=== PATIENT | female | born 1975 | race Caucasian/White ===

== ENCOUNTER 2018-12-19 17:11 | Outpatient (REF) | payer BC, SELFPAY ==
--- NOTE | 2018-12-19 16:15 | PAPFT_PTH ---
PATIENT: Trang Yang LOC: [facility] U#:[id number] AGE/SX: 43/F ROOM: RE12/19/[address]: Marlene Rosas : 1975 BED: DIS: 12/19/2018 SPEC #: [id number] RECD: 12/20/18 12:50 STATUS: SHASHI REAlberto #: [id number] PATRICIA: 12/19/18 16:[address]: Marlene Rosas DEPT: [facility] Cytology RECD BY: Dana Mathew Tissues: 1 - CX/ENDOCX FOR PAP SMEARS Procedures: PAP THIN PREP/UVM Screening HPV DNA PROBE Comments: [id number] (CHLAMYDIA/GC)
[2018-12-21 13:00] LABS: Chlamydia Result Negative; GC Result Negative; Specimen Description SEE COMMENTS
== END 2018-12-19 17:31 ==
LOC: NCHCN 17:11
PROVIDERS: PCP Family Medicine; Visit Provider Family Medicine
DX: Z00.00 Encounter for general adult medical examination without abnormal findings (principal); Z11.3 Encounter for screening for infections with a predominantly sexual mode of transmission; Z12.4 Encounter for screening for malignant neoplasm of cervix; Z11.51 Encounter for screening for human papillomavirus (HPV)
CPT/HCPCS: 87491; 87591; 88142; 87624

== ENCOUNTER 2019-12-03 00:55 | Outpatient (CLI) | payer BC, SELFPAY ==
--- NOTE | 2019-12-03 15:00 | DI.MAMMO_ITS ---
EXAM: MG MAMMO SCREENING CLINICAL HISTORY: screening TECHNIQUE: Mammograms were interpreted according to the usual protocol including computer analysis w ith CAD system, tomosynthesis and C-view imaging. COMPARISON: The current examination is compared with the previous examination of July 2014 FINDINGS: The breasts are heterogeneously dense. No dominant mass or clumped microcalcification is identified in either breast. The current examination is compared with the previous examination of July 2014 an d there is a question of increased prominence of an area of asymmetric density projected in the media l central portion of left breast on CC view and projected in the inferoposterior portion of the breas t on MLO view. Additional mammographic views are requested to exclude a mass including CC and MLO sp ot compression views of the left breast. IMPRESSION: Additional mammographic views of the left breast requested as described above. Breast ultrasound may be indicated as well depending on the results of the additional mammographic views. Category: BI-RADS Cat 0 - Assessment Incomplete: Need additional imaging evaluation Breast Density - Category C - Heterogeneously dense
== END 2019-12-03 01:15 ==
PROVIDERS: PCP Family Medicine; Visit Provider Obstetrics & Gynecology Gynecology
DX: Z12.31 Encounter for screening mammogram for malignant neoplasm of breast (principal); R92.2 Inconclusive mammogram
CPT/HCPCS: 77063; 77067

== ENCOUNTER 2019-12-05 01:20 | Outpatient (CLI) | payer BC, SELFPAY ==
--- NOTE | 2019-12-05 | DI.US_ITS ---
EXAM: MG MAMMO SCREEN CALL BACK UNI CLINICAL HISTORY: F/U MAMMO, INCREASED ASYMMETRIC DENSITY MEDIAL PORTION LT BREAST TECHNIQUE: Mammograms were interpreted according to the usual protocol including computer analysis w [employer] CAD system, tomosynthesis and C-view imaging. COMPARISON: FINDINGS: Additional mammographic views of the left breast and left breast ultrasound are interpreted in conjun ction. These examinations obtained to evaluate questionable areas of asymmetric density seen recent mammogram. Additional mammographic views fail to show a discrete mass. Breast ultrasound shows no e vidence of a mass or cyst. IMPRESSION: No specific evidence of malignancy at this time. Follow-up unilateral left breast mammogram recommen ded in 6 months. BI-RADS Cat 3 - 6 month - Probably Benign Finding: Recommend follow-up mammography in 6 months: Breast Density - Category C - Heterogeneously dense:
--- NOTE | 2019-12-05 09:21 | DI.MAMMO_ITS ---
EXAM: MG MAMMO SCREEN CALL BACK UNI CLINICAL HISTORY: F/U MAMMO, INCREASED ASYMMETRIC DENSITY MEDIAL PORTION LT BREAST TECHNIQUE: Mammograms were interpreted according to the usual protocol including computer analysis w [employer] CAD system, tomosynthesis and C-view imaging. COMPARISON: FINDINGS: Additional mammographic views of the left breast and left breast ultrasound are interpreted in conjun ction. These examinations obtained to evaluate questionable areas of asymmetric density seen recent mammogram. Additional mammographic views fail to show a discrete mass. Breast ultrasound shows no e vidence of a mass or cyst. IMPRESSION: No specific evidence of malignancy at this time. Follow-up unilateral left breast mammogram recommen ded in 6 months. BI-RADS Cat 3 - 6 month - Probably Benign Finding: Recommend follow-up mammography in 6 months: Breast Density - Category C - Heterogeneously dense:
== END 2019-12-05 01:40 ==
PROVIDERS: PCP Family Medicine; Visit Provider Obstetrics & Gynecology Gynecology
DX: Z12.39 Encounter for other screening for malignant neoplasm of breast (principal); R92.2 Inconclusive mammogram; R92.8 Other abnormal and inconclusive findings on diagnostic imaging of breast
CPT/HCPCS: 76642; 77063; 77067

== ENCOUNTER 2020-01-27 08:22 | Outpatient (REF) | payer BC, SELFPAY ==
[2020-01-27 21:25] LABS: HCT 45.3 % (36.0-46.0); HGB 14.5 g/dL (11.2-15.7); MCH 30.8 pg (27.0-33.0); MCV 96.2 fL (80-95); MPV 11.7 fL (8.0-11.0); Platelet Count 231 10^3/uL (130-400); RBC 4.71 10^6/uL (3.93-5.22); RDW 12.8 % (11.7-14.6); WBC 4.76 10^3/uL (4.4-10.8)
[2020-01-27 23:18] LABS: ALT 26 U/L (14-59); AST 17 U/L (15-37); Albumin 4.2 g/dL (3.4-5.0); Alkaline Phosphatase 43 U/L (46-116); Anion Gap 6.7 mmol/L (3-11); BUN 14 mg/dL (7-18); Bilirubin, Total 0.9 mg/dL (0.2-1.0); CO2 29.3 mmol/L (21.0-32.0); CREATININE 0.78 mg/dL (0.55-1.02); Calcium 9.2 mg/dL (8.5-10.1); Calculated LDL 119 mg/dL (<100); Chloride 106 mmol/L (98-107); Cholesterol 186 mg/dL (<200); Glucose 89 mg/dL (74-106); HDL Cholesterol 55 mg/dL (40-60); Sodium 142 mmol/L (136-145); Triglyceride 60 mg/dL (<150)
[2020-01-28 00:07] LABS: Total Protein 7.2 g/dL (6.4-8.2)
== END 2020-01-27 08:42 ==
LOC: NCHCN 08:22
PROVIDERS: PCP Family Medicine; Visit Provider Family Medicine
DX: Z00.00 Encounter for general adult medical examination without abnormal findings (principal); Z13.0 Encounter for screening for diseases of the blood and blood-forming organs and certain disorders involving the immune mechanism; Z13.220 Encounter for screening for lipoid disorders; Z13.228 Encounter for screening for other metabolic disorders
CPT/HCPCS: 80053; 80061; 85027

== ENCOUNTER 2020-06-22 01:53 | Outpatient (CLI) | payer BC, SELFPAY ==
--- NOTE | 2020-06-22 08:00 | DI.MAMMO_ITS ---
EXAM: MG MAMMO DIAGNOSTIC UNI-left CLINICAL HISTORY: 6 MO F/U, F/U ABNL MAMMO, H/OT LT BREAST DENSITY. TECHNIQUE: Unilateral left CC and MLO mammographic images were obtained with 3D [employer] ue and utilizing computer aided detection (CAD). COMPARISON: Prior mammograms dating back to 2014, the most recent being November 2019. Ultrasound Nov us2019 was also reviewed, apparently negative FINDINGS: Again noted is dense fibroglandular tissue. No new obvious masses nor malignant-appearing microcalcification groups. Area previously described medially in left breast appears unchanged. IMPRESSION: Dense fibroglandular tissue. No obvious radiographic evidence of malignancy in the left breast. Appropriate follow-up is to keep this patient yearly mammogram schedule, this implying that her next screening mammogram would be in November 2020, with earlier imaging if a self detected breast changes n oted.. Given the density of this patient's fibroglandular tissue I feel would be good idea to form bilateral breast screening ultrasound examination at the time of her next yearly mammogram. BI-RADS Category 2 - Benign Findings Breast Density - Category D - Extremely dense Breast density Category C or D implies that the patient has dense breast tissue. Dense breast tissue can make it harder to find cancer on a mammogram. Dense breast tissue is also associated with an incr eased risk of breast cancer. This information about the result of the mammogram report was provided to the patient to raise their awareness. Use this report when you speak with the patient about their risks for breast cancer, which includes their family history. At that time, you may recommend additional screening tests (Ultrasoun d or MRI) as these tests may add significant information. A negative radiographic report should not delay biopsy if a dominant or clinically suspicious mass is present. Up to ten percent of cancers are not identified on mammography. A negative report may reinforce clinical impression. Adenosis and dense breasts may obscure an underlying neoplasm. False positive reports average 6 to 10%. Patient will receive a letter notifying them of these results.
== END 2020-06-22 01:54 ==
LOC: DI 01:54
PROVIDERS: PCP Family Medicine; Visit Provider Obstetrics & Gynecology Gynecology
DX: Z12.31 Encounter for screening mammogram for malignant neoplasm of breast (principal); R92.8 Other abnormal and inconclusive findings on diagnostic imaging of breast; N64.59 Other signs and symptoms in breast
CPT/HCPCS: 77061; 77065; G0279

== ENCOUNTER 2020-11-19 16:00 | Outpatient (REF) | payer BC, SELFPAY | END 2020-11-19 16:01 | disposition home or self-care (01) | LOC: LBN 16:00 | PROVIDERS: PCP Family Medicine; Visit Provider Obstetrics & Gynecology | DX: N89.8 Other specified noninflammatory disorders of vagina (principal) | CPT/HCPCS: 87102; 87206; 87480; 87510; 87660 ==

== ENCOUNTER 2020-11-26 04:12 | Outpatient (CLI) | payer BC, SELFPAY ==
[2020-11-26 11:33] LABS: Hemoglobin A1C 5.3 % (<5.7)
== END 2020-11-26 04:13 | disposition home or self-care (01) ==
LOC: LBO 04:12
PROVIDERS: PCP Family Medicine; Visit Provider Obstetrics & Gynecology
DX: Z83.3 Family history of diabetes mellitus (principal); Z13.1 Encounter for screening for diabetes mellitus
CPT/HCPCS: 36415; 83036

== ENCOUNTER 2020-12-03 01:56 | Outpatient (CLI) | payer BC, SELFPAY ==
--- NOTE | 2020-12-03 06:30 | DI.MAMMO_ITS ---
Exam(s) MAMMO SCREENING EXAM: MAMMO SCREENING CLINICAL HISTORY: screening,Z12.39. TECHNIQUE: Bilateral full field digital CC and MLO mammographic images were obtained with 3D tomosyn thesis and utilizing computer aided detection (CAD). COMPARISON: Prior mammograms dating back to 2014, the most recent being November 2019. Breast ultrasound November 2019 was also reviewed. FINDINGS: Fibroglandular tissue pattern is again noted be dense, this decreasing the sensitivity of the mammogr am for finding hidden underlying lesions. There are no CAD designations. In the anterior aspect of the left breast in the lateral para areolar region there is a small nodular density which appears unchanged from 2020. This measures 2.5 x 2.5 millimeters and is located appro ximately 2 cm in from the nipple. No malignant-appearing microcalcification groups in this region or elsewhere in either breast. Posteriorly in the left breast up again suggest wall there is a nodular density measuring 10 x 7 mill imeter which has the appearance of probable lymph node although is more evident than on prior studies . No new significant radiographic findings evident in the right breast. There is no significant architectural distortion nor skin thickening-retraction. IMPRESSION: Dense bilateral fibroglandular tissue. No obvious radiographic evidence of malignancy in the right b reast. In the left breast there are 2 findings as described above, 1 anteriorly and the other posteriorly up against chest wall. Breast ultrasound recommended. BI-RADS Category 0 - Assessment Incomplete: Need additional imaging evaluation Breast Density - Category C - Heterogeneously dense Breast density Category C or D implies that the patient has dense breast tissue. Dense breast tissue can make it harder to find cancer on a mammogram. Dense breast tissue is also associated with an incr eased risk of breast cancer. This information about the result of the mammogram report was provided to the patient to raise their awareness. Use this report when you speak with the patient about their risks for breast cancer, which includes their family history. At that time, you may recommend additional screening tests (Ultrasoun d or MRI) as these tests may add significant information. A negative radiographic report should not delay biopsy if a dominant or clinically suspicious mass is present. Up to ten percent of cancers are not identified on mammography. A negative report may reinforce clinical impression. Adenosis and dense breasts may obscure an underlying neoplasm. False positive reports average 6 to 10%. Patient will receive a letter notifying them of these results.
== END 2020-12-03 02:16 ==
PROVIDERS: PCP Family Medicine; Visit Provider Obstetrics & Gynecology Gynecology
DX: Z12.31 Encounter for screening mammogram for malignant neoplasm of breast (principal)
CPT/HCPCS: 77063; 77067

== ENCOUNTER 2020-12-18 03:49 | Outpatient (CLI) | payer BC, SELFPAY ==
--- NOTE | 2020-12-18 | DI.MAMMO_ITS ---
Exam(s) US BREAST LT COMPLETE MG MAMMO SCREEN CALL BACK UNI EXAM: MG MAMMO SCREEN CALL BACK UNI and U/S breast LT limited CLINICAL HISTORY: F/U MAMMO,LT NODULAR DENSITY, ? LYMPH NODE. TECHNIQUE: Craniocaudal and mediolateral oblique Full Field Digital Mammography views of the left br east with Computer Aided Diagnosis followed by Tomosynthesis and left breast ultrasound. COMPARISON: Priors available for comparison. FINDINGS: Mammography/Tomosynthesis: Masses/Architectural Distortion: The well-circumscribed nodule in the retroareolar region of the left breast is unchanged compared to the prior examination. The area of concern in the left axillary maine l does not persist on the additional views. Microcalcifictions: No suspicious pleomorphic-type are seen. Skin Thickening/Nipple Retraction: None. Left breast US: Echotexture: Normal appearance of the glandular tissue. Shadowing: No suspicious foci. Cyst: There is a 0.6 x 0.4 x 0.7 cm simple cyst at the 2 o'clock position of the left breast 1 cm fro m the nipple. There is a 0.4 x 0.3 x 0.4 cm round well-circumscribed hypoechoic nodule at the 2 o'cl ock position of the left breast 1 cm from the nipple. There does appear to be internal debris and th is may represent a hemorrhagic cyst. Solid lesions: None seen. Ductal dilation: None. IMPRESSION: 1. No evidence of malignancy is noted. Two cystic lesions at the 2 o'clock position, 1 cm from the ni pple. One of these may represent a hemorrhagic cyst. The 2nd corresponds to a simple cyst sonograph icakeyony. 2. A six-month follow-up left mammogram and ultrasound are requested for re-evaluation. 3. The findings were discussed with the patient on the date of the examination. BI-RADS Category 3 - 6 month - Probably Benign Finding: Recommend follow-up imaging in 6 months Breast Density - Category C - Heterogeneously dense Breast density Category C or D implies that the patient has dense breast tissue. Dense breast tissue can make it harder to find cancer on a mammogram. Dense breast tissue is also associated with an incr eased risk of breast cancer. This information about the result of the mammogram report was provided to the patient to raise their awareness. Use this report when you speak with the patient about their risks for breast cancer, which includes their family history. At that time, you may recommend additional screening tests (Ultrasoun d or MRI) as these tests may add significant information. A negative radiographic report should not delay biopsy if a dominant or clinically suspicious mass is present. Up to ten percent of cancers are not identified on mammography. A negative report may reinforce clinical impression. Adenosis and dense breasts may obscure an underlying neoplasm. False positive reports average 6 to 10%. Patient will receive a letter notifying them of these results.
== END 2020-12-18 04:09 ==
PROVIDERS: PCP Family Medicine; Visit Provider Obstetrics & Gynecology Gynecology
DX: Z12.31 Encounter for screening mammogram for malignant neoplasm of breast (principal); N60.02 Solitary cyst of left breast
CPT/HCPCS: 76642; 77063; 77067

== ENCOUNTER 2021-06-21 01:39 | Outpatient (CLI) | payer BC, SELFPAY ==
--- NOTE | 2021-06-21 07:45 | DI.US_ITS ---
Exam(s) US BREAST LT COMPLETE MG MAMMO DIAGNOSTIC UNI EXAM: MG MAMMO DIAGNOSTIC UNI -LEFT AND COMPLETE LEFT BREAST ULTRASOUND CLINICAL HISTORY: 6mo f/u,N60.02,R92.8. TECHNIQUE: Unilateral spot mammographic images were obtained with 3D tomosynthesis technique and uti lizing computer aided detection (CAD). Also performed complete ultrasound examination of the left breast including all 4 quadrants, the retr oareolar region, and left axilla. COMPARISON: Prior mammograms were reviewed, the most recent being November 2020. Prior ultrasound November 2020 was also reviewed FINDINGS: DIAGNOSTIC LEFT BREAST MAMMOGRAM: Fibroglandular tissue of the left breast is again noted dense, this somewhat decreasing sensitivity m ammogram for finding hidden underlying lesions. Today's mammogram images reveal a well-defined oval nodule at 1 o'clock position measuring 7 x 5 mill imeters. No additional nodules. No malignant-appearing microcalcification groups. COMPLETE LEFT BREAST ULTRASOUND: At the 1 o'clock position there is again noted of the 2 previously described adjacent findings. The larger of the 2 corresponds to the finding on today's mammogram and is a 7 by 5 millimeter microcyst, unchanged. Immediately adjacent to it is a smaller unchanged findings which is round and measures 4 x 4 millimeter. Careful multiplanar imaging through this nodule reveals it to be a hemorrhagic micr ocyst. This is not seen on the mammogram. Also noted is another benign finding at the-4 o'clock position which is a 3 millimeter microcyst. There are no new solid lesions in the left breast. No significant left axillary adenopathy. IMPRESSION: 1. Nodule on the mammogram as described above which corresponds to the 7 x 5 millimeter microcyst see n on today's ultrasound, this ultrasound finding being unchanged from the November 2020 ultrasound find ing. 2. Adjacent to the above is an unchanged 4 millimeter hemorrhagic microcyst. 3. Benign 3 millimeter microcyst at the 4 o'clock position. Appropriate follow-up (as discussed by myself with the patient today) is to keep this patient on her yearly mammogram schedule this implying that her next bilateral mammogram would be in November 2021. A t that time I recommend that she undergo bilateral breast ultrasound, given the density of her breast tissue.. The patient was informed of the findings and follow-up recommendations prior to leaving the [facility] t today. BI-RADS Category 3 - 6 month - Probably Benign Finding: Recommend follow-up mammography in 6 months Breast Density - Category C - Heterogeneously dense Breast density Category C or D implies that the patient has dense breast tissue. Dense breast tissue can make it harder to find cancer on a mammogram. Dense breast tissue is also associated with an incr eased risk of breast cancer. This information about the result of the mammogram report was provided to the patient to raise their awareness. Use this report when you speak with the patient about their risks for breast cancer, which includes their family history. At that time, you may recommend additional screening tests (Ultrasoun d or MRI) as these tests may add significant information. A negative radiographic report should not delay biopsy if a dominant or clinically suspicious mass is present. Up to ten percent of cancers are not identified on mammography. A negative report may reinforce clinical impression. Adenosis and dense breasts may obscure an underlying neoplasm. False positive reports average 6 to 10%. Patient will receive a letter notifying them of these results.
== END 2021-06-21 01:59 ==
PROVIDERS: PCP Family Medicine; Visit Provider Obstetrics & Gynecology Gynecology
DX: N60.02 Solitary cyst of left breast (principal); R92.8 Other abnormal and inconclusive findings on diagnostic imaging of breast
CPT/HCPCS: 76642; 77061; 77065; G0279

== ENCOUNTER 2021-11-17 17:01 | Outpatient (REF) | payer BC, SELFPAY | END 2021-11-17 17:02 | disposition home or self-care (01) | LOC: LBN 17:01 | PROVIDERS: PCP Family Medicine; Visit Provider Nurse Practitioner Women's Health | DX: N89.8 Other specified noninflammatory disorders of vagina (principal) | CPT/HCPCS: 87480; 87510; 87660 ==

== ENCOUNTER → 2021-12-07 02:37 | Outpatient (CLI) | payer BC, SELFPAY ==
--- NOTE | 2021-12-07 10:54 | DI.MAMMO_ITS ---
Exam(s) MAMMO SCREENING EXAM: MAMMO SCREENING CLINICAL HISTORY: screening,z12.39 TECHNIQUE: Mammograms were interpreted according to the usual protocol including computer analysis w [employer] CAD system, tomosynthesis and C-view imaging. COMPARISON: 2014 through 2021 FINDINGS: The breasts are composed of heterogeneously dense fibroglandular densities, Breast Density category C . No suspicious masses or suspicious microcalcifications are seen. No skin thickening or abnormal axillary lymph nodes are seen. There has been no significant change from prior exams. IMPRESSION: BI-RADS Category 1, Negative mammogram. Yearly screening mammography is recommended. Breast Density Category C, heterogeneously Dense. The mammogram demonstrates the patient's breast tissue is dense. Dense breast tissue is very common a nd is not abnormal but dense breast tissue can make it harder to find cancer on a mammogram. Also, de nse breast tissue may increase breast cancer risk. This information about the result of the mammogram report was provided to the patient to raise their awareness. Use this report when you speak with the patient about their risks for breast cancer, which includes their family history. At that time, you may recommend additional screening tests (Ultrasound or MRI) as they might be useful based on their r isk. A negative radiographic report should not delay biopsy if a dominant or clinically suspicious mass is present. Up to ten percent of cancers are not identified on mammography. A negative report may reinforce clinical impression. Adenosis and dense breasts may obscure an underlying neoplasm. False positive reports average 6 to 10%.
== END ==
PROVIDERS: PCP Family Medicine; Visit Provider Obstetrics & Gynecology Gynecology
DX: Z12.31 Encounter for screening mammogram for malignant neoplasm of breast (principal); R92.8 Other abnormal and inconclusive findings on diagnostic imaging of breast
CPT/HCPCS: 77063; 77067

== ENCOUNTER 2022-03-26 11:44 | Outpatient (REF) | payer BC, SELFPAY | END 2022-03-26 11:45 | disposition home or self-care (01) | LOC: LBN 11:44 | PROVIDERS: PCP Family Medicine; Visit Provider Nurse Practitioner Family | DX: R30.0 Dysuria (principal) | CPT/HCPCS: 87086 ==

== ENCOUNTER 2022-11-28 15:57 | Outpatient (REF) | payer BC, SELFPAY ==
[2022-11-28 21:44] LABS: ALT 24 U/L (14-59); AST 17 U/L (15-37); Albumin 4.2 g/dL (3.4-5.0); Alkaline Phosphatase 53 U/L (46-116); Anion Gap 8.9 mmol/L (3-11); BUN 14 mg/dL (7-18); Bilirubin, Total 0.6 mg/dL (0.2-1.0); CO2 29.1 mmol/L (21.0-32.0); CREATININE 0.8 mg/dL (0.55-1.02); Calcium 9.4 mg/dL (8.5-10.1); Calculated LDL 118 mg/dL (<100); Chloride 102 mmol/L (98-107); Cholesterol 208 mg/dL (<200); Estimated GFR 90.27 (mL/min/1.73m2); Glucose 94 mg/dL (74-106); HDL Cholesterol 60 mg/dL (40-60); Potassium 3.8 mmol/L (3.5-5.1); Sodium 140 mmol/L (136-145); Total Protein 7.5 g/dL (6.4-8.2); Triglyceride 151 mg/dL (<150)
[2022-11-28 22:34] LABS: Vitamin D 25 Total 38.2 ng/mL (30-100)
== END 2022-11-28 15:58 | disposition home or self-care (01) ==
LOC: NCHCN 15:57
PROVIDERS: PCP Family Medicine; Visit Provider Family Medicine
DX: Z00.00 Encounter for general adult medical examination without abnormal findings (principal)
CPT/HCPCS: 80053; 80061; 82306

== ENCOUNTER → 2022-12-09 00:23 | Outpatient (CLI) | payer BC, SELFPAY ==
--- NOTE | 2022-12-09 08:25 | DI.MAMMO_ITS ---
Exam(s) MAMMO SCREENING EXAM: MAMMO SCREENING CLINICAL HISTORY: screening,z12.39 TECHNIQUE: Mammograms were interpreted according to the usual protocol including computer analysis w light CAD system, tomosynthesis and C-view imaging. COMPARISON: 2014 through 2021 FINDINGS: The breasts are composed of heterogeneously dense fibroglandular densities, Breast Density category C . No suspicious masses or suspicious microcalcifications are seen. No skin thickening or abnormal axillary lymph nodes are seen. There has been no significant change from prior exams. IMPRESSION: BI-RADS Category 1, Negative mammogram. Yearly screening mammography is recommended. Breast Density Category C, heterogeneously Dense. The mammogram demonstrates the patient's breast tissue is dense. Dense breast tissue is very common a nd is not abnormal but dense breast tissue can make it harder to find cancer on a mammogram. Also, de nse breast tissue may increase breast cancer risk. This information about the result of the mammogram report was provided to the patient to raise their awareness. Use this report when you speak with the patient about their risks for breast cancer, which includes their family history. At that time, you may recommend additional screening tests (Ultrasound or MRI) as they might be useful based on their r isk. A negative radiographic report should not delay biopsy if a dominant or clinically suspicious mass is present. Up to ten percent of cancers are not identified on mammography. A negative report may reinforce clinical impression. Adenosis and dense breasts may obscure an underlying neoplasm. False positive reports average 6 to 10%.
== END ==
PROVIDERS: PCP Family Medicine; Visit Provider Obstetrics & Gynecology Gynecology
DX: Z12.31 Encounter for screening mammogram for malignant neoplasm of breast (principal)
CPT/HCPCS: 77063; 77067

== ENCOUNTER → 2023-06-27 02:07 | Outpatient (CLI) | payer BC, SELFPAY ==
--- NOTE | 2023-06-27 07:15 | DI.RAD_ITS ---
Exam(s) XR FOOT RT COMPLETE EXAM: XR FOOT RT COMPLETE CLINICAL HISTORY: Painful bunion rt foot,M79.671,M21.611. TECHNIQUE: 2D digital imaging was performed. Three views. COMPARISON: CR XR FOOT LT COMPLETE from 06/27/2023 FINDINGS: BONES: No acute fracture is present. No bony destructive lesion is seen. JOINTS: No dislocation present. First metatarsal varus and hallux valgus. SOFT TISSUE: Normal. IMPRESSION: Hallux valgus. DATA REPOSITORY: RADIATION DOSE DELIVERED:
--- NOTE | 2023-06-27 07:15 | DI.RAD_ITS ---
Exam(s) XR FOOT LT COMPLETE EXAM: XR FOOT LT COMPLETE CLINICAL HISTORY: Left foot painful bunion,M79.672,M21.612. TECHNIQUE: 2D digital imaging was performed. Three views. COMPARISON: No exams were available for comparison FINDINGS: BONES: No acute fracture is present. No bony destructive lesion is seen. JOINTS: No dislocation present. First metatarsal varus and hallux valgus. 1st MTP joint is maintain ed. Plantar arch is maintained. SOFT TISSUE: Normal. IMPRESSION: Hallux valgus. DATA REPOSITORY: RADIATION DOSE DELIVERED:
== END ==
PROVIDERS: PCP Family Medicine; Visit Provider Podiatrist
DX: M79.672 Pain in left foot (principal); M21.612 Bunion of left foot; M79.671 Pain in right foot; M21.611 Bunion of right foot
CPT/HCPCS: 73630

== ENCOUNTER 2023-10-23 14:46 | Outpatient (REF) | payer BC, SELFPAY ==
[2023-10-23 15:38] LABS: FREE T4 1.06 ng/dL (0.76-1.46); TSH 1.48 uIU/Ml (0.36-3.74)
== END 2023-10-23 14:47 | disposition home or self-care (01) ==
LOC: NCHCN 14:46
PROVIDERS: PCP Family Medicine; Visit Provider Family Medicine
DX: E04.9 Nontoxic goiter, unspecified (principal)
CPT/HCPCS: 84439; 84443

== ENCOUNTER 2023-10-27 07:13 | Day surgery (SDC) | payer BC, SELFPAY ==
--- NOTE | 2023-10-26 22:03 | W.COLOREPORT ---
Date of service: 10/27/23 Time of Service: 15:00 Colonoscopy Report Date of procedure: 10/27/23 Pre-op diagnosis general: CRC screening Post-op diagnosis procedure note: other (Small internal and external hemorrhoids) Surgeon: Salud Guaman Anesthesia Type: General:No Airway Estimated blood loss (mL): 0 Pathology: none sent Complications: None Disposition: same day Prep: Miralax/Dulcolax Retraction Time: 8mins Procedure Description: After informed consent was obtained the patient was taken to the procedure room and placed in a left decubitous position. Monitors were applied and a time out was done. The patients name, date of , procedure, allergies to medications and metal in their body was reviewed. The patient was then sedated. Once sedated and comfortable a rectal exam was done. External exam-small external hemorrhoids without thrombosis or inflammation. Internal exam revealed a normal sphincter tone and no palpable masses. The scope was then introduced and retrofelexed. GradeII internal hemorrhoids x 2 columns were identified. The scope was then advanced to the cecum without difficulty. The TI and appendiceal orifice were identified. The scope was then slowly retracted over 8 minutes back into the rectum. There are no polyp/AVM/diverticula visualized today. The Mucosa is pink and healthy with a normal vascular pattern.. The scope was removed and the patient was woken up and taken back to Same day surgery in stable condition. The patient tolerated the procedure well and there were no immediate complications. Follow up: The patient should follow up in 10 years unless they develop changes in bowel habits or other new gastrointestinal complaints. Butler Bowel Prep Butler Bowel Prep Right Colon: 3 Left Colon: 3 Transverse Colon: 3 Total Score: 9
--- NOTE | 2023-10-26 22:04 | PDOC.DSDIS_ITS ---
Date of service: 10/27/23 Time of Service: 10:26 Discharge Plan Disposition Patient Disposition: Home Condition: Good Discharge Details Reason For Visit: colon scope Attending Provider: Salud Guaman Primary Care Provider: Marlene Rosas Home Meds and New Rx's Prescriptions: Continued multivitamin Tablet 1 tab PO DAILY cholecalciferol (vitamin D3) 125 mcg (5,000 unit) capsule 125 mcg PO DAILY Mirena 1 EACH intrauterine device 1 ea Intrauterine DAILY Qty: 1 Discontinued bisacodyl [Dulcolax (bisacodyl)] 5 mg tablet,delayed release (DR/EC) 5 mg PO ONCE Qty: 4 0RF Rx Instructions: Take per colonoscopy instructions provided by ordering providers office polyethylene glycol 3350 17 gram/dose powder 17 g PO ONCE Qty: 238 0RF Rx Instructions: Take per colonoscopy instructions provided by ordering providers office Discharge Instructions Additional Instructions: DSU Colonoscopy Post- Op Instructions Instructions for Everyone who is given Anesthesia: For your safety, please do the following for the next twenty-four (24) hours: *Do Not operate a motor vehicle (car, truck, motorcycle, etc.) *Do Not drink alcoholic beverages or use any recreational drugs for the first 24 hours or while taking pain medications. The medications in your body may have a reaction that can be dangerous. *Do Not make any important decisions or sign any important papers. Findings: small external and internal hemorrhoids Follow up: Repeat in 10 yrs time 1. No lifting over 20 pounds or strenuous activity for the first 24 hours after your procedure. After 24 hours there are no restrictions on your activity but you may feel fatigued for a few days. 2. After you arrive home you may have a light meal and return to your normal diet as you can tolerate it without feeling sick to your stomach. 3. You may have a bloated, gaseous feeling in your belly (abdomen) after a colonoscopy. Passing gas and belching will help. Walking or lying down on your left side with your knees flexed may relieve the discomfort. Call the office at [phone] (Office) or [phone] (Hospital) right away if you notice any of the following: a.Vomiting of blood or ?coffee ground stools?. b.Rectal bleeding 1Tbsp, blood clots or continuous bleeding. c.Severe belly (abdominal) pain. d.A hard distended belly (abdomen) and an inability to pass gas. 4. Please don?t expect to have a normal BM (bowel movement) for 2-3 days after your procedure. 5. If there are questions regarding the findings of your procedure, please contact your doctor 6. If you are unable to contact your doctor with a problem, contact the hospital at [phone]. 7. Continue all your regular medications unless directed otherwise. I understand the above instructions and have no questions. Signature of Patient or Adult Escort Name of Responsible Adult Escort Signature of Nurse Date/Time Stand Alone Forms: Anesthesia Discharge Inst., Kyle Elizondo (DSU) Activity:: see above Diet:: see above Discharge Orders Discharge Orders: Discharge Order (Routine); Ordered 10/27/23 Ordered By: Salud Guaman DS: Diagnosis Discharge Diagnosis (1) Colon cancer screening: Status: Acute Asessment and Plan: The patient is seen and examined after their colonoscopy.? The patient has been able to pass gas.? They are not having abdominal pain.? They have been able to tolerate liquids and a snack.? They do not have any nausea or vomiting.? They are not having any chest pain or shortness of breath.??? They are not having any rectal bleeding. Their vital signs have been stable-see nursing notes. We discussed findings during their colonoscopy, and any biopsies that were done/polyps that were removed. The patient will be sent a letter with any biopsy results, and when to repeat the colonoscopy.-see discharge instructions. Patient was given explicit instructions to follow-up regarding colonoscopy-refer to discharge instructions.? We reviewed resumption of medications. Patient verbalized understanding and discharged in stable and satisfactory condition- See nursing notes. (2) Cerebral palsy: Status: Acute (3) Internal hemorrhoid: Status: Acute (4) External hemorrhoid: Status: Acute
[2023-10-27 07:27] VITALS: BP 128/70; PULSE 85; RESP 20; TEMP 36.2; O2SAT 100
[2023-10-27] MEDS: Lactated Ringers 1,000 ML 80 ML IV (07:48)
[2023-10-27 08:14] VITALS: BMI 25.3
--- NOTE | 2023-10-27 08:14 | W.ANESPRE ---
General Info Date of Service Date Performed: 10/27/23 Height: 5 ft 2.5 in Weight: 63.9 kg Body Mass Index (BMI): 25.3 Surgical Procedure: Operation Date: 10/27/23 08:20 Proposed Procedure Side Surgeon jack Guaman, DO Meds Allergies and Home Medications Allergies Allergy/AdvReac Type Severity Reaction Status Date / Time No Known Allergies Allergy Verified 10/27/23 07:38 Home Medication Medication Instructions Recorded levonorgestrel 21 mcg/24 hr (up to 1 ea intrauterine DAILY ##1 09/23/14 8 years) 52 mg intrauterine device (Mirena) cholecalciferol (vitamin D3) 125 125 mcg PO DAILY 06/27/23 mcg (5,000 unit) capsule multivitamin 1 tab PO DAILY 06/27/23 Current Visit Medications: Current Medications Generic Name Dose Route Start Last Admin Trade Name Freq PRN Reason Stop Dose Admin Hyoscyamine Sulfate 0.125 mg 10/27/23 12:43 Hyoscyamine 0.125 Mg Sl/Oral/Chew SL 11/26/23 12:42 DIRECTED PRN Ringer's Solution 1,000 mls @ 80 mls/hr 10/27/23 06:00 10/27/23 07:48 IV 10/27/23 23:59 80 mls/hr INFUSION [place] Administration IV Miscellaneous Supplies 1 each 10/27/23 06:00 Iv Access IV 10/27/23 23:59 DIRECTED [place] Ondansetron HCl 4 mg 10/27/23 00:43 Ondansetron 4 Mg/2 Ml Vial IVP 11/26/23 00:42 Q4H PRN PRN Nausea / Vomiting Sodium Chloride 0 ml 10/27/23 06:00 Normal Saline Flush 10 Ml Syr IV 10/27/23 23:59 PRN PRN Sodium Chloride 0 ml 10/27/23 06:00 Normal Saline 10 Ml Vial IJ 10/27/23 23:59 DIRECTED PRN Sterile Water 0 ml 10/27/23 06:00 Water,Injection,Sterile 10 Ml Vial IJ 10/27/23 23:59 DIRECTED PRN PFSH Active Problems Active Problems: Problem Status Onset Code Colon cancer screening Z12.11 Acquired leg length discrepancy M21.70 Achilles tendon contracture, 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, M67.02 Hallux rigidus of right foot M20.21 Hallux rigidus, left foot M20.22 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 08/2014 BV and yeast. 07/2015 Strabismus Herpes zoster ophthalmicus 12/2011 - on Valcyclovir suppression Tobacco Smoking/Tobacco Use Status: Never Alcohol Alcohol Intake: never Substance Use Substance use: Never Substance use type: does not use Prental History History 2 Para 2 Hx # Term Pregnancies 2 Multiple births Hx # Pregnancies Ectopic pregnancies AB induced Hx Number of Living Children 2 AB spontaneous Vital Signs and Lab Results Vital Signs Most Recent Vital Signs in EMR: Most Recent Vital Signs Temp Pulse Resp BP Pulse Ox 36.2 C L 85 20 128/70 100 10/27/23 07:27 10/27/23 07:27 10/27/23 07:27 10/27/23 07:27 10/27/23 07:27 Lab Results Blood Type / Crossmatch: No Data to Display Complete Blood Count: No Data to Display Complete Metabolic Panel: No Data to Display Liver Function Panel: No Data to Display Coagulation Panel: No Data to Display Cardiac Panel: No Data to Display Arterial Blood Gas: No Data to Display Venous Blood Gas: No Data to Display Pancreas Panel: No Data to Display Thyroid Panel: Thyroid Stimulating Hormone (TSH) 1.48 uIU/Ml (0.36-3.74) 10/23/23 09:06 Infectious Disease: No Data to Display Blood Cultures: No Data to Display Toxicology Panel: No Data to Display Panel: No Data to Display Anesthesia Assessment and Plan Anesthesia History Personal History: No History of Anesthesia Complications Family History: No Family History of Anesthesia Complications Exercise Tolerance Exercise Tolerance: Metabolic Equivalents>4 Pertinent Negatives Pertinent Negatives: No Symptoms of GERD Cardiac & Pulmonary Exam Cardiac Exam: Normal S1/S2 Heart Sounds Pulmonary Exam: Clear Bilateral Breath Sounds Implantable Cardiac Device Does patient have a Pacemaker or an ICD?: No Airway Exam Known Difficult Airway: No Mallampati Class: 2 Mouth Opening: Normal (> 3cm) Thyromental Distance: Greater than 3 cm Neck Range of Motion: Full ROM Neck Circumference: Normal Teeth Condition: Normal Dentition ASA Classification ASA Score: ASA 2 Emergency Case?: No NPO Status NPO Status: NPO Clears >2 hours, Solids >8 hours Status Status: Negative HCG Anesthesia Plan Resuscitation Status: Full Code Anesthesia Technique: General Anesthesia Airway Planned: Natural Airway Monitors Used: Standard Monitors
[2023-10-27 08:45] VITALS: BP 108/61; PULSE 62; RESP 16; TEMP 36.2; O2SAT 98
--- NOTE | 2023-10-27 08:49 | W.ANESPOSTOP ---
Postoperative Evaluation Date, Time and Location Date Performed: 10/27/23 Time Performed: 08:49 Patient Location: Day Surgery Unit Vital Signs Most Recent Imported Vital Signs: Most Recent Vital Signs Temp Pulse Resp BP Pulse Ox 36.2 C L 85 20 128/70 100 10/27/23 07:27 10/27/23 07:27 10/27/23 07:27 10/27/23 07:27 10/27/23 07:27 Pain Score Most Recent Pain Score: Most Recent Pain Score Pain Level 0 10/27/23 07:27 Assessment Mental Status: Awake (Alert & Oriented to Patient Baseline) Airway and Respiratory Function: Patent airway with normal (patient baseline) respiratory exam Cardiovascular Function: Hemodynamically Stable Hydration Status: Adequately Hydrated Nausea & Vomiting: No Nausea or Vomiting Pain: Pt. Denies Any Pain Peripheral Nerve Block: Patient did not receive a nerve block
[2023-10-27 09:15] VITALS: BP 113/69; PULSE 62; RESP 18; TEMP 36.3; O2SAT 100
== END 2023-10-27 10:38 | disposition home or self-care (01) ==
LOC: SUR 07:13
PROVIDERS: PCP Family Medicine; Visit Provider Surgery
PROC: 0DJD8ZZ Inspection of Lower Intestinal Tract, Via Natural or Artificial Opening Endoscopic (ICD-10-PCS; CPT 45378; principal; 2023-10-27 08:15)
DX: Z12.11 Encounter for screening for malignant neoplasm of colon (principal); G80.9 Cerebral palsy, unspecified; K64.8 Other hemorrhoids; K64.4 Residual hemorrhoidal skin tags; K64.1 Second degree hemorrhoids
CPT/HCPCS: 45378; 81025; J2001; J2704

== ENCOUNTER 2023-12-04 11:51 | Outpatient (REF) | payer BC, SELFPAY ==
--- NOTE | 2023-12-04 14:00 | PAPFT_PTH ---
PATIENT: Trang Yang LOC: [facility]#:[id number] AGE/SX: 48/F ROOM: RE12/04/[address]: Marlene Rosas : 1975 BED: DIS: 12/04/2023 SPEC #: [id number] RECD: 12/05/23 13:24 STATUS: SHASHI SIDDIQUI #: [id number] PATRICIA: 12/04/23 14:[address]: Marlene Rosas DEPT: [facility] Cytology RECD BY: Binta Luevano Tissues: 1 - CX/ENDOCX FOR PAP SMEARS Procedures: PAP THIN PREP/UVM Screening HPV DNA PROBE Comments: [id number] (HPV 16 & 18/45)
== END 2023-12-04 11:52 | disposition home or self-care (01) ==
LOC: NCHCN 11:51
PROVIDERS: PCP Family Medicine; Visit Provider Family Medicine
DX: Z12.4 Encounter for screening for malignant neoplasm of cervix (principal)
CPT/HCPCS: 88142; 88164; 87624; P3000

== ENCOUNTER 2023-12-15 00:46 | Outpatient (CLI) | payer BC, SELFPAY ==
--- NOTE | 2023-12-15 12:25 | DI.MAMMO_ITS ---
Exam(s) MAMMO SCREENING EXAM: MAMMO SCREENING CLINICAL HISTORY: screening,z12.39 TECHNIQUE: Bilateral full field digital CC and MLO mammographic images were obtained with 3D tomosyn thesis and utilizing computer aided detection (CAD). COMPARISON: Available for comparison. FINDINGS: Masses/Architectural Distortion: None seen. Microcalcifications: No suspicious pleomorphic-type are seen. Skin Thickening/Nipple Retraction: None. IMPRESSION: 1. No significant interval change with no specific features of malignancy noted. 2. Unless there is more urgent need, screening mammography is recommended, as per [employer] guidelines. BI-RADS Category 1 - Negative Breast Density - Category C - Heterogeneously dense Breast density category C or D implies that the patient has dense breast tissue. Dense breast tissue is very common and is not abnormal but dense breast tissue can make it harder to find cancer on a ma mmogram. Also, dense breast tissue may increase their breast cancer risk. This information about the result of the mammogram report was provided to the patient to raise their awareness. Use this report when you speak with the patient about their risks for breast cancer, which includes their family hist ory. At that time, you may recommend for more screening tests (Ultrasound or MRI) as they might be us eful based on their risk. A negative radiographic report should not delay biopsy if a dominant or clinically suspicious mass is present. Up to ten percent of cancers are not identified on mammography. A negative report may reinforce clinical impression. Adenosis and dense breasts may obscure an underlying neoplasm. False positive reports average 6 to 10%. Patient will receive a letter notifying them of these results.
== END 2023-12-15 01:06 ==
LOC: DI 00:46
PROVIDERS: PCP Family Medicine; Visit Provider Obstetrics & Gynecology Gynecology
DX: Z12.31 Encounter for screening mammogram for malignant neoplasm of breast (principal)
CPT/HCPCS: 77063; 77067

== ENCOUNTER 2024-12-05 14:03 | Outpatient (REF) | payer BC, SELFPAY ==
[2024-12-05 14:09] LABS: ALT 29 U/L (14-59); AST 17 U/L (15-37); Albumin 4.0 g/dL (3.4-5.0); Alkaline Phosphatase 53 U/L (46-116); Anion Gap 4.9 mmol/L (3-11); BUN 15 mg/dL (7-18); Bilirubin, Total 0.5 mg/dL (0.2-1.0); CO2 30.1 mmol/L (21.0-32.0); Calcium 9.5 mg/dL (8.5-10.1); Calculated LDL 106 mg/dL (<100); Chloride 105 mmol/L (98-107); Cholesterol 167 mg/dL (<200); Estimated GFR 104.65 (mL/min/1.73m2); Glucose 95 mg/dL (74-106); HDL Cholesterol 55 mg/dL (>or=50); Potassium 4.6 mmol/L (3.5-5.1); Sodium 140 mmol/L (136-145); Total Protein 7.0 g/dL (6.4-8.2); Triglyceride 32 mg/dL (<150); Vitamin D 25 Total 40 ng/mL (30-100)
== END 2024-12-05 14:04 | disposition home or self-care (01) ==
LOC: NCHCN 14:03
PROVIDERS: PCP Family Medicine; Visit Provider Family Medicine
DX: Z00.00 Encounter for general adult medical examination without abnormal findings (principal)
CPT/HCPCS: 80053; 80061; 82306

== ENCOUNTER 2024-12-16 02:30 | Outpatient (CLI) | payer BC, SELFPAY ==
--- NOTE | 2024-12-16 | DI.MAMMO_ITS ---
Exam(s) MAMMO SCREENING EXAM: MAMMO SCREENING CLINICAL HISTORY: Screening, Z12.31. TECHNIQUE: Bilateral full field digital CC and MLO mammographic images were obtained with 3D tomosynthesis and utilizing computer aided detection (CAD). COMPARISON: Prior mammograms were reviewed. FINDINGS: There has been no significant change in the appearance and distribution of the fibroglandular tissue. There are no CAD designations. There are no new spiculated masses nor malignant appearing microcalcification groups. Small benign-appearing nodule anteriorly in the left breast is unchanged from prior mammograms. There is no significant architectural distortion nor skin thickening-retraction. IMPRESSION: No radiographic evidence of malignancy. Benign-appearing findings. BI-RADS Category 2 - Benign Findings Breast Density - Category C - The breast are heterogeneously dense, which may obscure small masses. Breast density Category C or D implies that the patient has dense breast tissue. Dense breast tissue can make it harder to find cancer on a mammogram. Dense breast tissue is also associated with an increased risk of breast cancer. This information about the result of the mammogram report was provided to the patient to raise their awareness. Use this report when you speak with the patient about their risks for breast cancer, which includes their family history. At that time, you may recommend additional screening tests (Ultrasound or MRI) as these tests may add significant information. A negative radiographic report should not delay biopsy if a dominant or clinically suspicious mass is present. Up to ten percent of cancers are not identified on mammography. A negative report may reinforce clinical impression. Adenosis and dense breasts may obscure an underlying neoplasm. False positive reports average 6 to 10%. Patient will receive a letter notifying them of these results.
== END 2024-12-16 02:50 ==
LOC: DI 02:30
PROVIDERS: PCP Family Medicine; Visit Provider Family Medicine
DX: Z12.31 Encounter for screening mammogram for malignant neoplasm of breast (principal); R92.333 Mammographic heterogeneous density, bilateral breasts
CPT/HCPCS: 77063; 77067